=== PATIENT | male | born 1950 | race African-American/Black ===

== ENCOUNTER 2017-03-08 16:20 | Emergency (ER) | payer OTHER ==
[~2017-03-08 16:20] MED LIST: ATENOLOL25 MG PO; BG MC; FER300 PO; GLIPIZIDE5 MG PO; GLU10 PO; HYDROCHLOROTHIA25 MG PO; LEVEMIR100 U/M1 SC; LEVEMIR100 U/M1 SQ; MAGNESIUM OXID400 MG PO; METFORMIN ER500 M1 PO; METFORMIN HCL1000 MG PO; THERAGRAN-M1 TA4 PO; VITC PO; ZESTRIL20 MG PO; ZOC20 PO
== END 2017-03-08 17:03 | disposition left against medical advice (07) ==
LOC: ED 16:20
DX: Z53.21 Procedure and treatment not carried out due to patient leaving prior to being seen by health care provider (principal)

== ENCOUNTER 2017-03-08 17:55 | Emergency (ER) | payer OTHER ==
[~2017-03-08] VITALS: Ht 175.3 cm; Wt 81.6 kg
[2017-03-08 18:22] VITALS: Ht 175.3 cm; Wt 81.6 kg
[2017-03-08 19:17] LABS: BASOPHIL % 0.9 % (0-2); PLATELET COUNT 189 x10^3mcL (130-400); RED CELL DISTRIBUTION WIDTH 12.3 % (11.5-14.5)
[2017-03-08 19:22] LABS: CALCIUM 9.3 mg/dL (8.5-10.1); CARBON DIOXIDE 30.2 mmol/L (21-32); CHLORIDE SERUM 94 mmol/L (98-107); CREATININE SERUM 1.1 mg/dL (0.7-1.3); GFR1 > 60 mL/min; GLUCOSE SERUM 309 mg/dL (74-106); SODIUM SERUM 134 mmol/L (136-145)
[2017-03-08 19:27] LABS: ALKALINE PHOSPHATASE 119 U/L (46-116); ALT/SGPT 53 U/L (16-63); AMYLASE 106 U/L (25-115); AST/SGOT 47 U/L (15-37); BILIRUBIN TOTAL 0.6 mg/dL (0.20-1.00); LIPASE 91 IU/L (73-393); TOTAL PROTEIN, SERUM 8.5 g/dL (6.4-8.2)
[2017-03-08 20:14] VITALS: BP 154/99
== END 2017-03-08 20:14 | disposition home or self-care (01) ==
LOC: ED 17:55
PROVIDERS: Emergency Medicine
DX: E11.43 Type 2 diabetes mellitus with diabetic autonomic (poly)neuropathy (principal); K31.84 Gastroparesis; I10 Essential (primary) hypertension; R11.10 Vomiting, unspecified
CPT/HCPCS: 36415; 82962; 83880; Q0162

== ENCOUNTER 2017-08-10 15:18 | Inpatient (IN) | payer OTHER ==
[~2017-08-10] VITALS: Ht 177.8 cm; Wt 80.8 kg
[~2017-08-10 15:18] MED LIST changes: -GLIPIZIDE5 MG PO; +GLUCOTROL10 MG PO
[2017-08-10 16:24] LABS: BASOPHIL % 0.3 % (0-2); PLATELET COUNT 231 x10^3mcL (130-400); RED CELL DISTRIBUTION WIDTH 13.6 % (11.5-14.5)
[2017-08-10 16:34] LABS: ALKALINE PHOSPHATASE 100 U/L (46-116); ALT/SGPT 25 U/L (16-63); AST/SGOT 15 U/L (15-37); BILIRUBIN TOTAL 0.53 mg/dL (0.20-1.00); CALCIUM 8.5 mg/dL (8.5-10.1); CARBON DIOXIDE 17.1 mmol/L (21-32); CHLORIDE SERUM 86 mmol/L (98-107); GFR1 22 mL/min; SODIUM SERUM 125 mmol/L (136-145); TOTAL PROTEIN, SERUM 6.8 g/dL (6.4-8.2)
[2017-08-10 16:40] LABS: ALBUMIN 3.1 g/dL (3.4-5.0); CHOLESTEROL 201 mg/dL (<200)
[2017-08-10 17:24] LABS: GLUCOSE SERUM 984 mg/dL (74-106)
[2017-08-10 17:25] LABS: POTASSIUM SERUM 5.8 mmol/L (3.5-5.1)
[2017-08-10 18:00] LABS: microscopic required? NO
[2017-08-10 18:11] LABS: urine erythrocyte NEGATIVE (NEGATIVE)
[2017-08-10 18:24] LABS: AMPHETAMINE QUAL UR NONE DETECTED (See below)
[2017-08-10 18:42] LABS: FREE T4 1.16 ng/dL (0.76-1.46); FREE THYROXINE INDEX 2.9 ug/dL (1.4-4.5); T4(THYROXINE) 7.3 ug/dL (4.7-13.3)
[2017-08-10 18:43] LABS: T3 TOTAL 0.45 ng/mL
[2017-08-10 18:49] LABS: AMYLASE 103 U/L (25-115); LIPASE 88 IU/L (73-393)
[2017-08-10 20:33] LABS: CALCIUM 8.3 mg/dL (8.5-10.1); CARBON DIOXIDE 25.1 mmol/L (21-32); CHLORIDE SERUM 93 mmol/L (98-107); CREATININE SERUM 0.8 mg/dL (0.7-1.3); GFR1 > 60 mL/min; GLUCOSE SERUM 173 mg/dL (74-106); MAGNESIUM 1.7 mg/dL (1.8-2.4); PHOSPHOROUS 3.6 mg/dL (2.5-4.9); POTASSIUM SERUM 4.2 mmol/L (3.5-5.1); SODIUM SERUM 128 mmol/L (136-145)
[2017-08-10 20:41] VITALS: BP 149/98
[2017-08-10 23:05] VITALS: BP 144/86
[2017-08-11 00:42] LABS: CALCIUM 8.3 mg/dL (8.5-10.1); CARBON DIOXIDE 26.4 mmol/L (21-32); CREATININE SERUM 1.9 mg/dL (0.7-1.3); MAGNESIUM 1.9 mg/dL (1.8-2.4); POTASSIUM SERUM 3.1 mmol/L (3.5-5.1)
[2017-08-11 03:06] VITALS: BP 128/91
[2017-08-11 05:15] LABS: CALCIUM 8.4 mg/dL (8.5-10.1); CARBON DIOXIDE 26.7 mmol/L (21-32); CREATININE SERUM 1.4 mg/dL (0.7-1.3); MAGNESIUM 1.9 mg/dL (1.8-2.4); PHOSPHOROUS 2.4 mg/dL (2.5-4.9); POTASSIUM SERUM 3.2 mmol/L (3.5-5.1)
[2017-08-11 07:35] VITALS: BP 147/80
[2017-08-11 09:02] LABS: CALCIUM 8.5 mg/dL (8.5-10.1); CARBON DIOXIDE 27.9 mmol/L (21-32); CREATININE SERUM 1.3 mg/dL (0.7-1.3); MAGNESIUM 1.8 mg/dL (1.8-2.4); PHOSPHOROUS 2.2 mg/dL (2.5-4.9); POTASSIUM SERUM 4.2 mmol/L (3.5-5.1)
[2017-08-11 11:51] VITALS: BP 157/90
[2017-08-11 15:23] VITALS: BP 141/81
[2017-08-11] MEDS ORDERED: LEVEMIR100 U/M1 SC (16:52)
[2017-08-11 19:25] VITALS: BP 162/96
[2017-08-11 23:21] VITALS: BP 156/81
[2017-08-12 03:04] VITALS: BP 152/77
[2017-08-12 05:24] LABS: BASOPHIL % 0.2 % (0-2); PLATELET COUNT 181 x10^3mcL (130-400); RED CELL DISTRIBUTION WIDTH 13.7 % (11.5-14.5)
[2017-08-12 05:33] LABS: CALCIUM 8.5 mg/dL (8.5-10.1); CARBON DIOXIDE 25.9 mmol/L (21-32); CHLORIDE SERUM 110 mmol/L (98-107); CREATININE SERUM 0.9 mg/dL (0.7-1.3); GFR1 > 60 mL/min; GLUCOSE SERUM 149 mg/dL (74-106); MAGNESIUM 1.6 mg/dL (1.8-2.4); PHOSPHOROUS 1.6 mg/dL (2.5-4.9); POTASSIUM SERUM 3.1 mmol/L (3.5-5.1); SODIUM SERUM 143 mmol/L (136-145)
[2017-08-12 08:00] VITALS: BP 186/101
[2017-08-12 12:00] VITALS: BP 141/87
[2017-08-12 16:00] VITALS: BP 116/88
[2017-08-12 21:00] VITALS: BP 144/60
[2017-08-13 06:07] LABS: BASOPHIL % 0.4 % (0-2); PLATELET COUNT 159 x10^3mcL (130-400); RED CELL DISTRIBUTION WIDTH 13.6 % (11.5-14.5)
[2017-08-13 06:08] VITALS: BP 153/87
[2017-08-13 06:17] LABS: CALCIUM 9.3 mg/dL (8.5-10.1); CARBON DIOXIDE 26.4 mmol/L (21-32); CHLORIDE SERUM 108 mmol/L (98-107); CREATININE SERUM 0.8 mg/dL (0.7-1.3); GFR1 > 60 mL/min; GLUCOSE SERUM 250 mg/dL (74-106); MAGNESIUM 2.2 mg/dL (1.8-2.4); PHOSPHOROUS 2.5 mg/dL (2.5-4.9); POTASSIUM SERUM 3.5 mmol/L (3.5-5.1); SODIUM SERUM 141 mmol/L (136-145)
[2017-08-13 09:20] VITALS: BP 133/92
[2017-08-13 12:45] VITALS: BP 130/88
[2017-08-13 17:46] VITALS: BP 106/75
[2017-08-13 21:06] VITALS: BP 141/83
[2017-08-14 05:20] VITALS: BP 124/71
[2017-08-14 05:26] VITALS: BP 154/95
[2017-08-14 06:29] LABS: BASOPHIL % 0.4 % (0-2); PLATELET COUNT 159 x10^3mcL (130-400); RED CELL DISTRIBUTION WIDTH 13.4 % (11.5-14.5)
[2017-08-14 06:54] LABS: CALCIUM 7.8 mg/dL (8.5-10.1); CARBON DIOXIDE 28.2 mmol/L (21-32); CHLORIDE SERUM 107 mmol/L (98-107); CREATININE SERUM 0.7 mg/dL (0.7-1.3); GFR1 > 60 mL/min; GLUCOSE SERUM 105 mg/dL (74-106); SODIUM SERUM 141 mmol/L (136-145)
[2017-08-14 09:30] VITALS: BP 169/94
[2017-08-14] MEDS ORDERED: NOR10 PO (13:48)
[2017-08-14 13:50] VITALS: BP 130/87
[2017-08-14] MEDS ORDERED: ECO81 PO (13:52)
[2017-08-14] MEDS ORDERED: METOPROLOL SUCC50 M2 PO (14:57)
[2017-08-14 15:04] VITALS: BP 130/87
== END 2017-08-14 17:20 | disposition home or self-care (01) | DRG 637 ==
LOC: ED 15:18 → IC 17:40 → DU 08-12 15:44
PROVIDERS: Family Medicine; Specialist
PROC: 05HM33Z Insertion of Infusion Device into Right Internal Jugular Vein, Percutaneous Approach (ICD-10-PCS; principal; 2017-08-10)
PROC: B543ZZA Ultrasonography of Right Jugular Veins, Guidance (ICD-10-PCS; 2017-08-10)
DX: E11.10 Type 2 diabetes mellitus with ketoacidosis without coma (principal); G93.41 Metabolic encephalopathy; N17.0 Acute kidney failure with tubular necrosis; I47.1 Supraventricular tachycardia; I42.2 Other hypertrophic cardiomyopathy; E11.51 Type 2 diabetes mellitus with diabetic peripheral angiopathy without gangrene; E87.6 Hypokalemia; E83.39 Other disorders of phosphorus metabolism; E78.5 Hyperlipidemia, unspecified; I34.0 Nonrheumatic mitral (valve) insufficiency; I10 Essential (primary) hypertension; Z79.4 Long term (current) use of insulin; Z79.899 Other long term (current) drug therapy
CPT/HCPCS: 36556; 36600; 82962; 83880; 84439; 97110-GP; 97116-GP; 97530-GP; G0480; J0360; J1642; J1815; J2060; J3475; J3480; J3490; J7030; J7040; Q0092

== ENCOUNTER 2018-01-06 14:43 | Emergency (ER) | payer OTHER ==
[~2018-01-06] VITALS: Ht 175.3 cm; Wt 72.6 kg
[~2018-01-06 14:43] MED LIST changes: +ECO81 PO; +METOPROLOL SUCC50 M2 PO; +NOR10 PO
[2018-01-06 14:51] VITALS: Ht 175.3 cm; Wt 72.6 kg
[2018-01-06 15:56] VITALS: BP 160/105
== END 2018-01-06 15:56 | disposition home or self-care (01) ==
LOC: ED 14:43
DX: B02.9 Zoster without complications (principal); I10 Essential (primary) hypertension; E11.9 Type 2 diabetes mellitus without complications

== ENCOUNTER 2018-04-27 17:29 | Inpatient (IN) | payer OTHER ==
[~2018-04-27] VITALS: Ht 175.3 cm; Wt 67.0 kg
[2018-04-27 17:40] VITALS: Ht 175.3 cm; Wt 67.0 kg
[2018-04-27 18:01] LABS: BASOPHIL % 0.1 % (0-2); PLATELET COUNT 186 x10^3mcL (130-400); RED CELL DISTRIBUTION WIDTH 13.8 % (11.5-14.5)
[2018-04-27 18:36] LABS: ALBUMIN 3.9 g/dL (3.4-5.0); BILIRUBIN TOTAL 0.63 mg/dL (0.20-1.00); CALCIUM 9.8 mg/dL (8.5-10.1); CARBON DIOXIDE 14.8 mmol/L (21-32); CREATININE SERUM 2.2 mg/dL (0.7-1.3); PHOSPHOROUS 5.9 mg/dL (2.5-4.9); POTASSIUM SERUM 4.6 mmol/L (3.5-5.1); TOTAL PROTEIN, SERUM 8.1 g/dL (6.4-8.2)
[2018-04-27 18:54] LABS: AMPHETAMINE QUAL UR NONE DETECTED (See below)
[2018-04-27] MEDS ORDERED: METFORMIN500 M1 (19:19)
[2018-04-27 20:47] LABS: microscopic required? YES; urine erythrocyte TRACE (NEGATIVE)
[2018-04-27 20:57] LABS: CHOLESTEROL/HDL RATIO 3.9
[2018-04-27 21:03] LABS: T3 TOTAL 0.41 ng/mL
[2018-04-27 21:07] LABS: FREE T4 1.35 ng/dL (0.76-1.46); FREE THYROXINE INDEX 3.1 ug/dL (1.4-4.5); T4(THYROXINE) 8.1 ug/dL (4.7-13.3)
[2018-04-27 21:29] VITALS: BP 154/92
[2018-04-27 23:05] VITALS: BP 144/61
[2018-04-28 00:41] LABS: CALCIUM 8.5 mg/dL (8.5-10.1); CARBON DIOXIDE 24.5 mmol/L (21-32); CREATININE SERUM 1.6 mg/dL (0.7-1.3); MAGNESIUM 1.8 mg/dL (1.8-2.4); PHOSPHOROUS 2.2 mg/dL (2.5-4.9); POTASSIUM SERUM 3.6 mmol/L (3.5-5.1)
[2018-04-28 03:14] VITALS: BP 125/86
[2018-04-28 05:26] LABS: CALCIUM 8.3 mg/dL (8.5-10.1); CARBON DIOXIDE 26.9 mmol/L (21-32); CREATININE SERUM 1.4 mg/dL (0.7-1.3); MAGNESIUM 1.8 mg/dL (1.8-2.4); PHOSPHOROUS 1.5 mg/dL (2.5-4.9); POTASSIUM SERUM 3.2 mmol/L (3.5-5.1)
[2018-04-28 08:24] VITALS: BP 132/85
[2018-04-28 08:36] LABS: CALCIUM 8.4 mg/dL (8.5-10.1); CARBON DIOXIDE 29.5 mmol/L (21-32); CREATININE SERUM 1.3 mg/dL (0.7-1.3); MAGNESIUM 1.9 mg/dL (1.8-2.4); PHOSPHOROUS 1.4 mg/dL (2.5-4.9); POTASSIUM SERUM 3.3 mmol/L (3.5-5.1)
[2018-04-28 11:24] VITALS: BP 111/67
[2018-04-28 15:23] VITALS: BP 120/76
[2018-04-28 18:00] VITALS: BP 135/87
[2018-04-28 21:35] VITALS: BP 132/85
[2018-04-29] VITALS (7 sets, daily range): BP systolic 148–172; BP diastolic 89–106
[2018-04-29 08:42] LABS: CALCIUM 8.1 mg/dL (8.5-10.1); CARBON DIOXIDE 27.7 mmol/L (21-32); CHLORIDE SERUM 106 mmol/L (98-107); CREATININE SERUM 1.1 mg/dL (0.7-1.3); GFR1 > 60 mL/min; GLUCOSE SERUM 241 mg/dL (74-106); POTASSIUM SERUM 3.6 mmol/L (3.5-5.1); SODIUM SERUM 140 mmol/L (136-145)
[2018-04-29 08:47] LABS: BASOPHIL % 0.8 % (0-2); RED CELL DISTRIBUTION WIDTH 13.5 % (11.5-14.5)
[2018-04-29 09:18] LABS: PLATELET COUNT 115 x10^3mcL (130-400)
== END 2018-04-29 14:16 | disposition home or self-care (01) | DRG 637 ==
LOC: ED 17:29 → IC 20:00 → DU 04-28 17:57
PROVIDERS: Emergency Medicine; ADMIT General Practice
PROC: 06HM33Z Insertion of Infusion Device into Right Femoral Vein, Percutaneous Approach (ICD-10-PCS; principal; 2018-04-27)
DX: E11.10 Type 2 diabetes mellitus with ketoacidosis without coma (principal); N17.0 Acute kidney failure with tubular necrosis; E11.65 Type 2 diabetes mellitus with hyperglycemia; E83.39 Other disorders of phosphorus metabolism; E87.6 Hypokalemia; I10 Essential (primary) hypertension; E78.5 Hyperlipidemia, unspecified; I25.2 Old myocardial infarction; Z68.23 Body mass index [BMI] 23.0-23.9, adult; Z79.82 Long term (current) use of aspirin; Z79.84 Long term (current) use of oral hypoglycemic drugs
CPT/HCPCS: 36600; 82962; 84439; J1815; J7030

== ENCOUNTER 2018-07-02 02:43 | Emergency (ER) | payer OTHER ==
[~2018-07-02] VITALS: Ht 175.3 cm; Wt 74.8 kg
[~2018-07-02 02:43] MED LIST changes: +METFORMIN500 M1
[2018-07-02 02:49] VITALS: Ht 175.3 cm; Wt 74.8 kg
[2018-07-02 04:34] LABS: BASOPHIL % 0.3 % (0-2); PLATELET COUNT 191 x10^3mcL (130-400); RED CELL DISTRIBUTION WIDTH 13.7 % (11.5-14.5)
[2018-07-02 04:35] LABS: microscopic required? NO
[2018-07-02 04:41] LABS: UA SPECIFIC GRAVITY <=1.005 (1.005-1.035); urine erythrocyte NEGATIVE (NEGATIVE)
[2018-07-02 04:51] LABS: ALBUMIN 3.4 g/dL (3.4-5.0); ALKALINE PHOSPHATASE 136 U/L (46-116); ALT/SGPT 37 U/L (16-63); AST/SGOT 28 U/L (15-37); BILIRUBIN TOTAL 0.4 mg/dL (0.20-1.00); CARBON DIOXIDE 27.9 mmol/L (21-32); CHLORIDE SERUM 99 mmol/L (98-107); GFR1 > 60 mL/min; LIPASE 138 IU/L (73-393); POTASSIUM SERUM 3.8 mmol/L (3.5-5.1); SODIUM SERUM 134 mmol/L (136-145); TOTAL PROTEIN, SERUM 7.3 g/dL (6.4-8.2)
[2018-07-02 05:07] LABS: GLUCOSE SERUM 452 mg/dL (74-106)
[2018-07-02 10:55] VITALS: BP 160/41
== END 2018-07-02 10:55 | disposition short-term general hospital (02) ==
LOC: ED 02:43
PROVIDERS: Emergency Medicine
DX: R27.0 Ataxia, unspecified (principal); I10 Essential (primary) hypertension; E11.9 Type 2 diabetes mellitus without complications; R32 Unspecified urinary incontinence; R19.7 Diarrhea, unspecified
CPT/HCPCS: 82962; J7030

== ENCOUNTER 2018-09-25 00:17 | Emergency (ER) | payer OTHER ==
[~2018-09-25] VITALS: Ht 175.3 cm; Wt 70.8 kg
[2018-09-25 00:24] VITALS: Ht 175.3 cm; Wt 70.8 kg
[2018-09-25 02:33] LABS: BASOPHIL % 0.3 % (0-2); PLATELET COUNT 180 x10^3mcL (130-400)
[2018-09-25 02:55] LABS: CALCIUM 9.7 mg/dL (8.5-10.1); CARBON DIOXIDE 22.8 mmol/L (21-32); CREATININE SERUM 1.6 mg/dL (0.7-1.3); POTASSIUM SERUM 4.2 mmol/L (3.5-5.1)
[2018-09-25 03:06] LABS: BILIRUBIN TOTAL 0.52 mg/dL (0.20-1.00); MAGNESIUM 2.1 mg/dL (1.8-2.4); PHOSPHOROUS 2.4 mg/dL (2.5-4.9); TOTAL PROTEIN, SERUM 8.1 g/dL (6.4-8.2)
[2018-09-25 05:09] LABS: microscopic required? NO
[2018-09-25 05:22] LABS: UA SPECIFIC GRAVITY 1.015 (1.005-1.035); urine erythrocyte NEGATIVE (NEGATIVE)
[2018-09-25 08:20] VITALS: BP 147/86
== END 2018-09-25 08:20 | disposition home or self-care (01) ==
LOC: ED 00:17
PROVIDERS: Emergency Medicine
DX: R53.1 Weakness (principal); E11.65 Type 2 diabetes mellitus with hyperglycemia; N28.9 Disorder of kidney and ureter, unspecified; I10 Essential (primary) hypertension
CPT/HCPCS: 82962; Q0092

== ENCOUNTER 2018-11-05 23:41 | Inpatient (IN) | payer OTHER ==
[~2018-11-05] VITALS: Ht 175.3 cm; Wt 69.7 kg
[2018-11-05 23:52] VITALS: Ht 175.3 cm; Wt 69.7 kg
--- NOTE | 2018-11-05 23:53 | NUR ---
PT BIB TO BED 5 VIA GURNEY. PER MEDIC PT WAS FOUND ON THE FLOOR AT HOME AND FAMILY CALLED 911 FOR ALOC. MEDIC REPORTS FAMILY AND PT WERE NOT GOOD HISTORIANS. MEDIC REPORTS PT HAS HISTORY OF HTN AND DM AND THE ONLY KNOWN MED PT TAKES WAS INSULIN. MEDIC STATES FAMILY REPORTS PT WAS ON THE FLOOR X 30MIN PRIOR TO 911 BEING CALLED. PT AAOX2 TO NAME AND BIRTHDAY. PT OPEN EYES TO VERBAL STIMULI. PT GCS OF 13. MEDICS ATTEMPTED TO START IV 2 WITH NO SUCCESS. PT BLOOD SUGAR IN ROUTE IN 273.
--- NOTE | 2018-11-06 00:23 | NUR ---
SPOKE WITH PT CASSANDRA ON PHONE. PT STATES PT HAD A "HIGH" READING OF BLOOD SUGAR. PT WAS GIVEN INSULIN. REPORTS PT IS NOT BEHAVING APPROPRAITE IS ALTERED. SHE STATES "NORMALLY HES MORE AWAKE". REPORTS PT HAS HISTORY OF DM AND HTN.
[2018-11-06 00:51] LABS: BASOPHIL % 0.4 % (0-2); PLATELET COUNT 144 x10^3mcL (130-400)
[2018-11-06 00:58] LABS: RED CELL DISTRIBUTION WIDTH 15.1 % (11.5-14.5)
[2018-11-06 01:15] LABS: CARBON DIOXIDE 33.1 mmol/L (21-32); CHLORIDE SERUM 99 mmol/L (98-107); CREATININE SERUM 2.1 mg/dL (0.7-1.3); GFR1 33 mL/min; GLUCOSE SERUM 215 mg/dL (74-106); POTASSIUM SERUM 4.5 mmol/L (3.5-5.1); SODIUM SERUM 139 mmol/L (136-145)
[2018-11-06 01:20] LABS: ALKALINE PHOSPHATASE 113 U/L (46-116); ALT/SGPT 66 U/L (16-63); AST/SGOT 130 U/L (15-37); BILIRUBIN TOTAL 0.4 mg/dL (0.20-1.00); TOTAL PROTEIN, SERUM 6.9 g/dL (6.4-8.2)
[2018-11-06 01:21] LABS: ALBUMIN 3.1 g/dL (3.4-5.0)
[2018-11-06 02:56] LABS: microscopic required? YES; urine erythrocyte 2+ (NEGATIVE)
--- NOTE | 2018-11-06 03:12 | NUR ---
REPORT GIVEN TO RYLIE ROBLES TO ASSUME CARE OF PT.
[2018-11-06 03:51] LABS: MAGNESIUM 2.9 mg/dL (1.8-2.4); PHOSPHOROUS 3.7 mg/dL (2.5-4.9)
[2018-11-06 03:56] LABS: CHOLESTEROL/HDL RATIO 2.5
--- NOTE | 2018-11-06 04:00 | NUR ---
RECEIVED PT FROM ED VIA [facility] BY NURSE. PT ALERT AND ORIENTED X2. PT DENIES ZAMORA/DIZZINESS. BREATHING EVEN AND UNLABORED ON RA. TELE 22 SR HR 81. PT DENIES NEGRO PAIN/PRESSURE. PER PT HE HAS A HEART MONITOR INITIATED BY HIS PROTECTION SPECIALIST, THE MONITOR IS NOT WITH HIM AT THIS TIME. PT HAS REJ PATENT. ABD SOFT/ROUND ACTIVE BOWEL SOUNDS, DENIES ABD PAIN/N/V. LAST BM 11/05/18. PT HAS SLOW SPEECH ABLE TO MAKE NEEDS KNOWN. PT HAS BLE EDEMA. PALPABLE PULSES. 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 PT ASLO HAS OPEN WOUND TO BUTTOCKS COVERED WITH OPTIFOAM. SMALL WOUND UNDERNEATH BUTTOCKS DIRECTOR OF ENTERPRISE APPLICATIONS. VS STABLE. NO SIGNS OF DISTRESS. CALL BUTTON WITHIN REACH. SAFETY PRECAUTIONS IN PLACE. WILL CONTINUE TO MONITOR.
--- NOTE | 2018-11-06 04:04 | NUR ---
PT TAKEN TO TELE VIA [employer] WITHOUT INCIDENT.
[2018-11-06 04:32] VITALS: BP 122/78
[2018-11-06 06:31] LABS: CALCIUM 8.3 mg/dL (8.5-10.1); CARBON DIOXIDE 32.3 mmol/L (21-32); CREATININE SERUM 1.6 mg/dL (0.7-1.3); POTASSIUM SERUM 4.2 mmol/L (3.5-5.1)
--- NOTE | 2018-11-06 06:55 | NUR ---
PT RESTING. BREATHING EVEN AND UNLABORED ON RA. IV PATENT INFUSING WELL. NO SIGNS OF DISTRESS. PT DENIES PAIN/DISCOMFORT. CALL BUTTON WITHIN REACH. SAFETY PRECAUTIONS IN PLACE. WILL CONTINUE TO MONITOR AND ENDORES CARE TO DAY SHIFT RN.
--- NOTE | 2018-11-06 07:37 | NUR ---
PT IN NO SIGNS OF DISTRESS. ENDORSED CARE TO DAY SHIFT RN, ALL QUESTIONS ADDRESSED.
[2018-11-06 07:40] LABS: BASOPHIL % 0.3 % (0-2)
[2018-11-06 07:41] LABS: PLATELET COUNT 129 x10^3mcL (130-400); RED CELL DISTRIBUTION WIDTH 14.7 % (11.5-14.5)
--- NOTE | 2018-11-06 08:00 | NUR ---
SHIFT ASSESSMENT DONE. PATIENT ALERT/ORIENTED TO PERSON, BUT UNABLE TO REMEMBER HIS DATE. TELE#22; SR; HR= 89. NO RESP DISTRESS ON RA. IVF OF NS 140CC/HR. IV SITE TO REJ CLEAN. PATIENT FINISHED 100% OF RENAL DIET BREAKFAST. VOID 325CC OF DARK YELLOW URINE VIA URINAL. DENIED PAIN. 1+ EDEMA TO BLE. GENERAL WEAKNESS. BED RESTING. ON AIR MATTRESS. OPENED WOUND TO DIANE BUTTOCKS, DRSG INTACT. SAFETY PRECAUTION IN PLACE.
[2018-11-06 09:20] VITALS: BP 140/82
[2018-11-06 12:09] LABS: CARBON DIOXIDE 33.8 mmol/L (21-32); CREATININE SERUM 1.4 mg/dL (0.7-1.3); POTASSIUM SERUM 4.5 mmol/L (3.5-5.1)
[2018-11-06 13:12] VITALS: BP 150/101
[2018-11-06 14:57] LABS: AMPHETAMINE QUAL UR NONE DETECTED (See below)
[2018-11-06 17:58] VITALS: BP 120/79
--- NOTE | 2018-11-06 18:56 | NUR ---
VOID X3 VIA URINAL. HAD BM X1, INCONT. TOLERATED DIET. IVF OF NS DECREASED TO 60CC/HR PER ORDER. NO C/O. REPOSITIONED PATIENT Q2H. WOUND CARE GIVEN TO COCCYX AREA. DENIED PAIN NOW. ENDORSED CARE TO [facility] NURSE.
--- NOTE | 2018-11-06 20:01 | NUR ---
PT RECIEVED AWAKE ALERT AND ORIENTED TO SELF BUT ABLE TO ANSWER SIMPLE QUESTIONS APPROPIATELY,BED IN THE LOW POSITION AND LOCKED,MADE COMFORTABLE IN BED,IV INFUSING WELL WITH THE SITE PATENT AND INTACT,HOB,PT ON LOW AIR MATTRESS AND HAS SCDS TO DIANE LLE,HOB,CALL LIGHT MADE CLOSE TO THE PATIENT AND WILL CONTINUE TO MONITOR.
[2018-11-06 21:34] VITALS: BP 113/77
--- NOTE | 2018-11-07 01:04 | NUR ---
PT RESTING AT THIS TIME AND WILL CONTINUE TO MONITOR.
[2018-11-07 05:16] VITALS: BP 129/74
--- NOTE | 2018-11-07 06:32 | NUR ---
PT HAD A RESTING NIGHT NO TODD GE AT TIS TIME,WILL CONTINUE TO MONITOR.
[2018-11-07 07:31] LABS: BASOPHIL % 0.3 % (0-2)
[2018-11-07 07:44] LABS: PLATELET COUNT 123 x10^3mcL (130-400); RED CELL DISTRIBUTION WIDTH 15.1 % (11.5-14.5)
--- NOTE | 2018-11-07 08:00 | NUR ---
SHIFT ASSESSMENT DONE. PATIENT ALERT/ORIENTED TO PERSON AND PLACE, BUT DISORIENTED TO TIME. TELE#22; SR; HR = 90. NO RESP DISTRESS ON RA. FINISHED 100% OF RENAL DIET BREAKFAST. NO N/V. IVF OF NS 60CC/HR, IV SITE TO REJ CLEAN. GENERAL WEAKNESS. OUT OF BED WITH PHYSICAL THERAPIST. BUT GAIT UNSTEADY. ABLE TO USE URINAL. BUT UNABLE TO REPORT BM. DECUB STG 2 TO BUTTOCK AREA. EDEMA 1+ BLE, R>L. SCD TO BLE. DENIED PAON. CALL LIGHT IN REACH. SAFETY PRECAUTION IN PLACE.
[2018-11-07 08:01] LABS: CALCIUM 8.1 mg/dL (8.5-10.1); CARBON DIOXIDE 25.1 mmol/L (21-32); CREATININE SERUM 1.4 mg/dL (0.7-1.3); MAGNESIUM 2.2 mg/dL (1.8-2.4); PHOSPHOROUS 2.2 mg/dL (2.5-4.9); POTASSIUM SERUM 4.4 mmol/L (3.5-5.1)
[2018-11-07 09:58] VITALS: BP 123/88
--- NOTE | 2018-11-07 11:16 | NUR ---
WOUND CARE EVALUATION NOTE: REASON FOR EVALUATION: SACRALCOCCYX PRESSURE ULCER SKIN ASSESSMENT DONE WITH PRIMARY RN WITH THIS 68 Y/O MALE PT ADMITTED TO [facility] [place] WITH SACRALCOCCYX PRESSURE ULCER. PT IS AWAKE, ALERT ABLE TO FOLLOE DIRECTIONS, SKIN IS WARM AND DRY, BLE NO HAIR GROWTH, NO EDEMA.BILATERAL DORSAL PEDAL PULSES PRESENT AND NORMAL. CAPILLARY REFILLED < 2 SEC. X 10 TOES. PLAN OF CARE DISCUSSED WITH PRIMARY RN AND PT. PT VERBALIZES UNDERSTANDING. INTEGUMENTARY: -BLANCHABLE REDNESS TO RIGHT AND LEFT BUTTOCKS -PRESSURE ULCER STAGE 2 TOSACRALCOCCYX, PARTIAL THICKNESS SKIN LOSS, BUTTERFLY SHAPE, 6X4X0.1 CM, WOUND BED IS 100% GRANULATING, CLEAN AND MOIST. NO ODOR. KELLY-WOUND SKIN INTACT -MULTIPLE DRY ABRASIONS TO BLE RECOMMENDATIONS: -KEEP SKIN DRY AND CLEAN AT ALL TIMES, PLEASE CHECK Q2H AND PRN FOR INCONTINENCY OF BOWEL AND BLADDER. -APPLY INTER DRY CLOTH TO BREASTS FOLDS INTERTRIGO Q7 DAYS AND PRN IF SOILING -APPLY Z-GUARD TO: B/L GROINS EXTENDED TO PERINEUM AND RIGHT AND LEFT INNER BUTTOCKS EXTENDED TO PERIANAL BID AND PRN IF SOILING -CLEANSE SACRALCOCCYX WITH NS, APPLY Z-GUARD COVER WITH FOAM DRESSING TO SACROCOCCXY DAILY AND PRN IF SOILING -APPLY HEEL PROTECTORS TO RIGHT AND LEFT HEELS AT ALL TIMES -OFFLOAD BILATERAL HEELS BY PLACING PILLOWS UNDER CALVES UNLESS OTHERWISE CONTRAINDICATED -PRESSURE REDISTUBUTION SURFACE THERAPY -TURN AND REPOSITION Q2H, OFFLOAD SACRALCOCCYX BY TURNING RIGHT AND LEFT -CONTINUE TO FOLLOW RD RECOMMENDATIONS ALL ABOVE RECOMMENDATIONS DISCUSSED WITH PRIMARY RN WILL FOLLOW UP PT Q7-10 DAYS. PLEASE CONTACT WOUND CARE NURSE FOR ANY QUESTION AND CHANGE OF WOUND CONDITION.
--- NOTE | 2018-11-07 11:25 | NUR ---
WOUND CARE EVALUATION NOTE: REASON FOR EVALUATION: SACRALCOCCYX PRESSURE ULCER SKIN ASSESSMENT DONE WITH PRIMARY RN WITH THIS 68 Y/O MALE PT [place] [facility] [place] SACRALCOCCYX PRESSURE ULCER. PT IS AWAKE, ALERT ABLE TO FOLLOW DIRECTIONS, SKIN IS WARM AND DRY, BLE NO HAIR GROWTH, NO EDEMA.BILATERAL DORSAL PEDAL PULSES PRESENT AND NORMAL. CAPILLARY REFILLED < 2 SEC. X 10 TOES. PLAN OF CARE DISCUSSED WITH PRIMARY RN AND PT. PT VERBALIZES UNDERSTANDING. INTEGUMENTARY: -BLANCHABLE REDNESS TO RIGHT AND LEFT BUTTOCKS -PRESSURE ULCER STAGE 2 TOSACRALCOCCYX, PARTIAL THICKNESS SKIN LOSS, BUTTERFLY SHAPE, 6X4X0.1 CM, WOUND BED IS 100% GRANULATING, CLEAN AND MOIST. NO ODOR. KELLY-WOUND SKIN INTACT -MULTIPLE DRY ABRASIONS TO BLE RECOMMENDATIONS: -KEEP SKIN DRY AND CLEAN AT ALL TIMES, PLEASE CHECK Q2H AND PRN FOR INCONTINENCY OF BOWEL AND BLADDER. -CLEANSE SACRALCOCCYX WITH NS, APPLY Z-GUARD COVER WITH FOAM DRESSING TO SACROCOCCXY DAILY AND PRN IF SOILING -APPLY HEEL PROTECTORS TO RIGHT AND LEFT HEELS AT ALL TIMES -OFFLOAD BILATERAL HEELS BY PLACING PILLOWS UNDER CALVES UNLESS OTHERWISE CONTRAINDICATED -PRESSURE REDISTUBUTION SURFACE THERAPY -TURN AND REPOSITION Q2H, OFFLOAD SACRALCOCCYX BY TURNING RIGHT AND LEFT -CONTINUE TO FOLLOW RD RECOMMENDATIONS ALL ABOVE RECOMMENDATIONS DISCUSSED WITH PRIMARY RN WILL FOLLOW UP PT Q7-10 DAYS. PLEASE CONTACT WOUND CARE NURSE FOR ANY QUESTION AND CHANGE OF WOUND CONDITION.
--- NOTE | 2018-11-07 12:30 | NUR ---
BLOOD SUGAR 453, REPEATED BLOOD SUGAR 468. R.I. 21 UNITS SQ GIVEN. Alex COLIN. NOTIFIED.
[2018-11-07 12:44] VITALS: BP 140/81
--- NOTE | 2018-11-07 14:07 | NUR ---
ECHO PENDING. PATIENT STATES HE HAD ECHO VERY RECENTLY AT [facility]. REQUESTED RECORDS NEEDED.
--- NOTE | 2018-11-07 14:56 | NUR ---
PHYSICAL THERAPY DAILY NOTES CO-SIGN All documentation done by the Refrigeration Engineering Teacher for 11/07/18 has been reviewed. I agree with the documentation. Reviewed/Co-Signed by: Paz Lorenzo PT Documentation Done by: LITO LOPEZ PTA
[2018-11-07 17:29] VITALS: BP 128/77
--- NOTE | 2018-11-07 18:03 | NUR ---
CONDITION STABLE. PATIENT STILL UNABLE TO REMEMBER HIS DATE. VOID X3 VIA URINAL IVHL'D PER ORDER. DENIED PAIN. CALL LIGHT IN REACH. FAMILY AT BED SIDE NOW.
--- NOTE | 2018-11-07 19:55 | NUR ---
PT RECIEVED AAO WITH FAMILY AT THE BEDSIDE,REG RESP NO SOB V/S STABLE,PT ON AIR LOW MATTRESS AND A DRESSING TO THE COCCYX WHICH IS CDI,KEPT CLEAN AND DRY TO TOUCH,BED IN THE LOW POSITION AND LOCKED,V/S STABLE,CALL LIGHT EASY REACHED AND WILL CONTINUE TO MONITOR.
[2018-11-07 21:34] VITALS: BP 139/82
[2018-11-08 05:46] VITALS: BP 147/78
[2018-11-08 06:03] LABS: BASOPHIL % 0.3 % (0-2)
--- NOTE | 2018-11-08 06:22 | NUR ---
PT HAD A RESTING NIGHT NO CHANGE AT THIS TIME,WILL CONTINUE TO MONITOR.
[2018-11-08 06:23] LABS: BILIRUBIN DIRECT 0.14 mg/dL (0.0-0.2); BILIRUBIN TOTAL 0.4 mg/dL (0.20-1.00); CALCIUM 7.9 mg/dL (8.5-10.1); CARBON DIOXIDE 30.1 mmol/L (21-32); CHLORIDE SERUM 101 mmol/L (98-107); CREATININE SERUM 0.9 mg/dL (0.7-1.3); GFR1 > 60 mL/min; GLUCOSE SERUM 365 mg/dL (74-106); POTASSIUM SERUM 4.7 mmol/L (3.5-5.1); SODIUM SERUM 138 mmol/L (136-145)
[2018-11-08 06:41] LABS: ALBUMIN 2.4 g/dL (3.4-5.0); TOTAL PROTEIN, SERUM 5.6 g/dL (6.4-8.2)
[2018-11-08 07:20] LABS: PLATELET COUNT 127 x10^3mcL (130-400); RED CELL DISTRIBUTION WIDTH 15.1 % (11.5-14.5)
--- NOTE | 2018-11-08 07:38 | NUR ---
RECEIVED SLEEPING BUT AROUSABLE. IN NO ACUTE RESP. DISTRESS. NO C/O PAIN OR DISCOMFORT. HL TO RIJ IN PLACE. CALL LIGHT WITHIN REACH. WILL CONTINUE WITH PLAN OF CARE.
[2018-11-08 08:11] VITALS: BP 164/104
[2018-11-08 12:28] VITALS: BP 130/70
--- NOTE | 2018-11-08 13:21 | NUR ---
RESTING IN NO DISTRESS, DENIES PAIN.
--- NOTE | 2018-11-08 15:05 | NUR ---
PHYSICAL THERAPY DAILY NOTES CO-SIGN All documentation done by the Director Of Acquisition Marketing for 11/08/18 has been reviewed. I agree with the documentation. Reviewed/Co-Signed by: Paz Lorenzo PT Documentation Done by: LITO LOPEZ PTA
--- NOTE | 2018-11-08 15:54 | NUR ---
DOSING ON AND OFF, NO DISTRESS. DENIES PAIN.
[2018-11-08 16:08] VITALS: BP 150/89
--- NOTE | 2018-11-08 18:23 | NUR ---
DAUGHTER DOUGLAS AT BEDSIDE. UPDATED ON PLAN OF CARE. PER DAUGHTER THEY PREFFER [facility] FOR PT. PT AGREED WITH PLAN. CHARGE NURSE ANTHONY BANSAL.
--- NOTE | 2018-11-08 18:32 | NUR ---
REMAINS IN NO ACUTE RESP. DISTRESS, AWAKE AND ALERT. FAMILY AT BEDSIDE,. NO C/O PAIN OR DISCOMFORT AT THIS TIME. HL TO REJ REMOVED AND NEW ONE INSERTED TO RFA. PT TOLERATED WELL. CALL LIGHT WITHIN REACH. WILL BE ENDORSED TO INCOMING SHIFT.
--- NOTE | 2018-11-08 19:23 | NUR ---
RECEIVED PT FROM PREVIOUS SHIFT. PT A/OX3. CONFUSED AT TIMES. DENIES PAIN. DENIES SOB ON RA. IV PATENT AND FLUSHING WELL TO R HAND. CALL LIGHT WITHIN REACH, BED IN LOW POSITION. WILL CONTINUE TO MONITOR.
[2018-11-08 21:00] VITALS: BP 138/89
--- NOTE | 2018-11-09 00:13 | NUR ---
PT RESTING IN NO ACUTE DISTRESS. RR EVEN AND UNLABORED. CALL LIGHT WITHIN REACH, BED IN LOW POSITION. WILL CONTINUE TO MONITOR.
[2018-11-09 05:42] VITALS: BP 167/88
[2018-11-09 06:04] LABS: BASOPHIL % 0.3 % (0-2); PLATELET COUNT 137 x10^3mcL (130-400)
[2018-11-09 06:17] LABS: RED CELL DISTRIBUTION WIDTH 15.6 % (11.5-14.5)
[2018-11-09 06:35] LABS: CALCIUM 8.1 mg/dL (8.5-10.1); CARBON DIOXIDE 30.8 mmol/L (21-32); CHLORIDE SERUM 99 mmol/L (98-107); CREATININE SERUM 0.8 mg/dL (0.7-1.3); GFR1 > 60 mL/min; GLUCOSE SERUM 322 mg/dL (74-106); POTASSIUM SERUM 4.6 mmol/L (3.5-5.1); SODIUM SERUM 137 mmol/L (136-145)
--- NOTE | 2018-11-09 07:34 | NUR ---
RESPIRATORY: TALKED TO PATIENT ABOUT AMBULATING ON ROOM AIR TO SEE IF PT QUALIFIES FOR HOME O2 AND PT STATES HE CANNOT WALK RIGHT NOW. TALKED TO RN TO SEE IF THIS IS HIS BASELINE AND SHE STATED HE HASNT WALKED SINCE HES BEEN ADMITTED HERE. PT 94% ON ROOM AIR IN SEMI FOWLERS POSITION LAYING IN BED.
--- NOTE | 2018-11-09 08:13 | NUR ---
ASSISTING PATIENT UP IN CHAIR FOR BREAKFAST, PATIENT ABLE TO WALK A FEW STEPS LEGS GAVE OUT DUE TO WEAKNESS. NO COMPLAINS. CALL LIGHT WITHIN REACH.
--- NOTE | 2018-11-09 08:51 | NUR ---
CALLED TO PTS ROOM BY RN STATING PHYSICAL THERAPY WAS THERE TO WALK PT FOR HOME O2 EVAL. PHYSICAL THERAPY IN ROOM BUT PATIENT WAS ASLEEP SITTING UP IN CHAIR BESIDE. UNABLE TO AROUSE PATIENT ENOUGH TO EVEN GET HIM TO KEEP HIS EYES OPEN SO I ASSISTED PHYSICAL THERAPY WITH GETTING PATIENT BACK IN BED. PT SPO2 IN CHAIR ON ROOM AIR 98%.
[2018-11-09 09:45] VITALS: BP 125/71
--- NOTE | 2018-11-09 10:12 | NUR ---
PT SLEEPING AT THIS TIME ARROUSABLE, MEDS PO ADMINISTERED PATIENT SWALLOWING W/O PROBLEM. CALL LIGHT WITHIN REACH. BED LOW.
--- NOTE | 2018-11-09 11:50 | NUR ---
PATIENT AWAKE/ALERT AT THIS TIME, FOLLOW COMMANDS. ADMINISTERED 9UNITS REGULAR INSULIN FOR BS 291 AND PATIENT ABLE TO TURN, KELLY CARE PROVIDED, APPLY ZGUARD TO OPEN WOUND COVER W/ OPTIFOAM, WOUND BED RED SCANT AMT SEROUS DRAINAGE. ASKING PATIENT TO STAY ON AND OFF THE BACK, PATIENT VERBALIZE OKAY. CALL LIGHT WITHIN REACH.
--- NOTE | 2018-11-09 13:18 | NUR ---
PATIENT SAT UP IN BED HOB 90 DEGREE, EATING HIS LUNCH FROM HOME THAT FAMILY MEMBERS BRING, NO COMPLAINS. HYDRALAZINE PO GIVEN. CONT TO MONITOR.
[2018-11-09 13:27] VITALS: BP 145/81
[2018-11-09 13:53] VITALS: BP 145/81
--- NOTE | 2018-11-09 14:28 | NUR ---
PHYSICAL THERAPY DAILY NOTES CO-SIGN All documentation done by the Agricultural Purchasing Agent for 11/09/18 has been reviewed. I agree with the documentation. Reviewed/Co-Signed by: Paz Lorenzo PT Documentation Done by: LITO LOPEZ PTA
--- NOTE | 2018-11-09 14:51 | NUR ---
PATIENT'S FAMILY MEMBERS CALL TO GET UP TO GOES TO BATHROOM, MISSION ANALYST AT BEDSIDE TRY TO EXPLAINED TO FAMILY MEMBERS PATIENT CAN'T WALK, RN CAME IN TO UPDATE FAMILY MEMBERS PATIENT GAIT ARE UNSTEADY AND GAVE OUT EASILY DUE WEAKNESS, WILL OFFER BEDPAN. ASSISTING PATIENT FOR INCONT OF STOOL, KELLY CARE PROVIDED. REPOSITION UP IN BED. CALL LIGHT WITHIN REACH.
--- NOTE | 2018-11-09 15:45 | NUR ---
PATIENT'S SON HERE [facility], UPDATE POC AND ACKNOWLEDGE TRANSFER TO [facility]. PATIENT RESTING IN BED DISCHARGE INSTRUCTION EXPLAINED. VERBALIZE UNDERSTAND AND SIGNED. NEEDS MET. CALL LIGHT WITHIN REACH.
--- NOTE | 2018-11-09 15:47 | NUR ---
CALLED AND SPOKE TO DIXIE(N.P.) AND MADE HER AWARE THAT FAMILY MEMBER WERE ALREADY NOTIFIED BY ALIDA FROM [employer] [employer] THAT PT IS GOING TO [facility] WHICH WAS THE DAUGHTER'S CHOICE NAME D[place]. Don DOMINGUEZ(SON) AT THE BEDSIDE AND HERE VISITING PT, MADE AWARE OF ABOVE AND HE HAD CONTACTED SISTER DOUGLAS AND THEY BOTH AGREEABLE [facility] IZZY ROBLES ASSIGNED TO THIS PT MADE AWARE OF ABOVE. AUTO AIR CONDITIONING MECHANIC PER ALIDA IS BETWEEN 1700 TO 1800 BY VITA.
[2018-11-09 16:42] VITALS: BP 119/68
--- NOTE | 2018-11-09 17:00 | NUR ---
CALL [facility] AND GAVE REPORT TO NURSE CHANTALE. INFORMATION TECHNOLOGY INSTRUCTOR BETWEEN 5-6PM BY VITA.
--- NOTE | 2018-11-09 17:24 | NUR ---
REPORT GIVEN TO [facility], INCONT OF SMALL BM KELLY CARE PROVVIDED, IV TO RH REMOVED W/ CATHETER INTACT, GAUZES APPLY NO BLEEDING NOTED. TELE #22 GAVE TO [place]. PATIENT TRANSPORT VIA [facility] WITH BELONGINGS - BLACK PHONE W/ PULP MILL SUPERVISOR, 2 BANK CARDS, AND CLOTHES.
== END 2018-11-09 17:20 | DRG 637 ==
LOC: ED 23:41 → DU 11-06 02:53
PROVIDERS: Emergency Medicine; Internal Medicine; Internal Medicine Gastroenterology; ADMIT Internal Medicine
DX: E11.65 Type 2 diabetes mellitus with hyperglycemia (principal); G93.41 Metabolic encephalopathy; N17.9 Acute kidney failure, unspecified; M62.82 Rhabdomyolysis; E87.1 Hypo-osmolality and hyponatremia; E86.0 Dehydration; T46.6X5A Adverse effect of antihyperlipidemic and antiarteriosclerotic drugs, initial encounter; R74.0 Nonspecific elevation of levels of transaminase and lactic acid dehydrogenase [LDH]; E83.41 Hypermagnesemia; I10 Essential (primary) hypertension; D64.9 Anemia, unspecified; Y92.009 Unspecified place in unspecified non-institutional (private) residence as the place of occurrence of the external cause
CPT/HCPCS: 82962; 83880; 97110-GP; 97116-GP; 97530-GP; C9113; G0378; G0480; J3490; J7030; Q0092